=== PATIENT | male | born 1995 | race Asian ===

== ENCOUNTER 2017-09-17 10:49 | Day surgery (SDC) | payer OTHER ==
[2017-09-17] VITALS (13 sets, daily range): BP systolic 108–131; BP diastolic 41–92
[~2017-09-17] VITALS: Ht 163.8 cm; Wt 58.1 kg
[~2017-09-17 10:49] MED LIST: ceFAZolin sod 1 GM in NS 55 ML IVPB ONE
[2017-09-17] MEDS ORDERED: TESTOSTERO100 MG/1 M IM (11:20)
[2017-09-17] MEDS ORDERED: Bacitracin Oint 15gm Tube TOPIC ONE (11:37)
[2017-09-17] MEDS ORDERED: Lidocaine 1% 10mg/ml/EPI 0.01mg/ml 50ml INJ ONE (11:38)
[2017-09-17] MEDS ORDERED: Muri-Lube ONE ×2 (11:38→11:51)
[2017-09-17] MEDS ORDERED: TransDerm Scop 1mg/72HR Patch TDERMAL ONE (11:39)
[2017-09-17] MEDS ORDERED: Propofol 200mg/20ml IV ONE (11:39)
--- NOTE | 2017-09-17 11:55 | Pre-Procedure Note/Attestation ---
Pre-Procedure Note/Attestation Complete Prior to Procedure Planned Procedure: bilateral Indications for Procedure Pre-Operative Diagnosis: gender dysphoria Attestation I attest that I discussed the nature of the procedure; its benefits; risks and complications; and alternatives (and the risks and benefits of such alternatives ), prior to the procedure, with the patient (or the patient's legal guest relations representative). I attest that, if there was a reasonable possibility of needing a blood transfusion, the patient (or the patient's legal guest relations representative) was given the [facility] standardized written summary, pursuant to the José Walcott Blood Safety Act ([place] Health and Safety Code # 1645, as amended). I attest that I re-evaluated the patient just prior to the surgery and that there has been no change in the patient's H&P, except as documented below: TONNY VITALE M.D. Sep 17, 2017 11:55
[2017-09-17] MEDS ORDERED: Bupivacaine 0.25% Inj 30ml INJ ONE (11:59)
[2017-09-17] MEDS ORDERED: NS Irrig 1000ml ONE (12:00)
[2017-09-17] MEDS ORDERED: Sterile Water Irrig 1000ml IRRIG ONE (12:00)
[2017-09-17] MEDS ORDERED: fentaNYL 100 mcg/2 mL IV ONE (12:00)
[2017-09-17] MEDS ORDERED: Ketorolac 30mg Inj ONE (12:00)
[2017-09-17] MEDS ORDERED: Glycopyrrolate 0.2mg/ml 1ml Vial ONE (12:00)
[2017-09-17] MEDS ORDERED: Succinylcholine 20mg/ml 10ml vial ONE (12:00)
[2017-09-17] MEDS ORDERED: Midazolam 2mg/2ml Inj ONE (12:00)
[2017-09-17] MEDS ORDERED: Morphine Sulfate 10mg/ml Inj ONE (12:00)
[2017-09-17] MEDS ORDERED: Neostigmine 1mg/ml 10ml Inj ONE (12:00)
[2017-09-17] MEDS ORDERED: Zemuron 50mg/5ml Inj IV ONE (12:00)
[2017-09-17] MEDS ORDERED: Dexamethasone 4mg/ml vial ONE (12:00)
[2017-09-17] MEDS ORDERED: LR 1000ml ONE (12:00)
[2017-09-17] MEDS ORDERED: Dyna-Hex 2% Top Sol 2oz TOPIC ONE (12:30)
[2017-09-17] MEDS ORDERED: LR 1000ml 1,000 ML IVLG SCH (13:10)
--- NOTE | 2017-09-17 13:10 | Anethesia Preoperative Eval ---
Anesthesia Pre-op PMH/ROS General Date of Evaluation: Sep 17, 2017 Time of Evaluation: 11:50 Anesthesiologist: Elton ASA Score: ASA 2 Mallampati Score Class I : Soft palate, uvula, fauces, pillars visible Class II: Soft palate, uvula, fauces visible Class III: Soft palate, base of uvula visible Class IV: Only hard plate visible Mallampati Classification: Class II Surgeon: Jodee Diagnosis: Gender dysphoria Surgical Procedure: Bilateral mastectomy with nipple reconstruction Anesthesia History: none Family History: no anesthesia problems Allergies: Coded Allergies: No Known Allergies (Unverified , 09/17/17) Medications: see eMAR Past Medical History Cardiovascular: Denies: HTN, CAD, [place], valve dz, arrhythmia, other Pulmonary: Denies: asthma, COPD, SANGEETA, other Gastrointestinal/Genitourinary: Denies: GERD, CRI, ESRD, other Neurologic/Psychiatric: Reports: depression/anxiety, Denies: dementia, CVA, TIA, other Endocrine: Denies: DM, hypothyroidism, steroids, other HEENT: Denies: cataract (L), cataract (R), glaucoma, IGIUGIG (L), IGIUGIG (R), other Hematology/Immune: Denies: anemia, DVT, bleeding disorder, other Musculoskeletal/Integumentary: Denies: OA, RA, DJD, DDD, edema, other PMH Narrative: as above PSxH Narrative: None Anesthesia Pre-op Phys. Exam Physician Exam Last Vital Signs Date Time Temp Pulse Resp B/P (MAP) Pulse Ox O2 Delivery O2 Flow Rate FiO2 09/17/17 11:22 128/86 09/17/17 11:14 98.7 88 19 100 Room Air Constitutional: NAD Neurologic: CN 2-12 intact Cardiovascular: RRR, no M/R/G Respiratory: CTA Gastrointestinal: S/NT/ND Airway Exam Mallampati Score: Class II MO: full Neck: flexible ROM: full Teeth: intact Dentures: no upper, no lower Anesthesia Pre-op A/P Labs See chart Urine Test Test 09/17/17 11:00 Urine HCG, Qualitative Negative Risk Assessment & Plan Assessment: ASA 2 Plan: Ga with ETT PONV prevention, scopolamine patch order in Status Change Before Surgery: No Pre-Antibiotics Drug: Ancef 1 gr. Given Within 1 Hr of Incision: Yes Time Given: 12:38 EDMOND FRANCES M.D. Sep 17, 2017 13:10
[2017-09-17] MEDS ORDERED: Metoclopramide 10mg/2ml Inj IVP PRN (13:15)
[2017-09-17] MEDS ORDERED: Hydromorphone 0.5mg/0.5ml inj IVP PRN (13:15)
[2017-09-17] MEDS ORDERED: Meperidine 50mg/ml Inj(FOR RIGORS ONLY) IV PRN (13:15)
[2017-09-17] MEDS ORDERED: Midazolam 2mg/2ml Inj IVP PRN (13:15)
[2017-09-17] MEDS ORDERED: Ketorolac 30mg Inj IV PRN (13:15)
[2017-09-17] MEDS ORDERED: DiphenhydrAMINE 50mg/ml Inj IVP PRN (13:15)
--- NOTE | 2017-09-17 15:44 | Discharge Instructions ---
Discharge Instructions Discharge Instructions Follow up with: Dr. Vitale Sep 22 2pm Diet: regular Resume Normal Activity?: Yes Activity: ambulate For Surgical Patients Dressing Care: keep dry and clean May shower: No For Congestive Heart Failure Reminder Report to your physician any weight gain of 5 pounds or more in one week. TONNY VITALE M.D. Sep 17, 2017 15:44
--- NOTE | 2017-09-17 15:44 | Operative Note - PDOC ---
Operative Note Operative Note Date of Operation/Procedure: Sep 17, 2017 Pre-op Diagnosis: gender dysphoria Procedure: bilateral mastectomy, free nipple areola graft Post-op Diagnosis: same as pre-op Surgeon: Jodee Anesthesiologist: Elton Anesthesia: general Specimen: yes - right breast, left breast Complications: none Condition: stable Estimated Blood Loss: volume - 50 cc Drains: MAGDA - x2 Implant(s) used?: No Indications for Procedure gender dysphoria TONNY VITALE M.D. Sep 17, 2017 15:44
--- NOTE | 2017-09-17 16:06 | Immediate Post-Op Evaluation ---
Immediate Post-Op Evalulation Immediate Post-Op Evalulation Procedure: Bilateral mastectomy with nipple reconstruction Date of Evaluation: Sep 17, 2017 Time of Evaluation: 16:04 IV Fluids: 1200 Blood Products: none Estimated Blood Loss: 100 Urinary Output: 400 Blood Pressure Systolic: 112 Blood Pressure Diastolic: 51 Pulse Rate: 96 Respiratory Rate: 22 O2 Sat by Pulse Oximetry: 98 Temperature (Fahrenheit): 97.8 Pain Score (1-10): 2 Nausea: No Vomiting: No Complications none Patient Status: reacts, patent, extubated, none Hydration Status: adequate EDMOND FRANCES M.D. Sep 17, 2017 16:06
--- NOTE | 2017-09-17 16:47 | 48 Hour Post Anesthesia Eval ---
Post Anesthesia Evaluation Procedure: Bilateral mastectomy with nipple reconstruction Date of Evaluation: Sep 17, 2017 Time of Evaluation: 16:46 Blood Pressure Systolic: 124 0: 68 Pulse Rate: 98 Respiratory Rate: 22 Temperature (Fahrenheit): 97.8 O2 Sat by Pulse Oximetry: 98 Airway: patent Nausea: No Vomiting: No Pain Intensity: 3 Hydration Status: adequate Cardiopulmonary Status: stable Mental Status/LOC: patient returned to baseline Follow-up Care/Observations: n/a Post-Anesthesia Complications: none Follow-up care needed: ready to discharge EDMOND FRANCES M.D. Sep 17, 2017 16:47
[2017-09-17] MEDS ORDERED: Hydromorphone 0.5mg/0.5ml inj SUBQ PRN (18:01)
[2017-09-17] MEDS ORDERED: Tylenol #3 tab (300mg/30mg) ORAL PRN (18:01)
[2017-09-17] MEDS ORDERED: D5 1/2NS 1,000 ML IV SCH (18:01)
[2017-09-17] MEDS ORDERED: Norco 5mg/325mg tab ORAL PRN (18:01)
--- NOTE | 2017-09-17 23:45 | Operative Note - Dictated ---
DATE OF OPERATION: 09/17/2017 PREOPERATIVE DIAGNOSIS: Gender dysphoria. POSTOPERATIVE DIAGNOSIS: Gender dysphoria. PROCEDURES: 1. Bilateral subcutaneous mastectomy. 2. Bilateral nipple-areolar reconstruction with full-thickness nipple-areolar composite graft (each graft 6.25 cm2). 3. Bilateral reconstruction of inferior mastectomy defect. SURGEON: Scooby Ellsworth M.D. ANESTHESIA: General. ESTIMATED BLOOD LOSS: 50 mL. SPECIMENS: 1. Right breast. 2. Left breast. DRAINS: A 15-[place] Junaid x2. COMPLICATIONS: None. CONDITION TO RECOVERY ROOM: Stable. INDICATION FOR PROCEDURE: This is a very pleasant 22-year-old trans-male, who has been undergoing transition for several years. He has the appropriate letter of support from his mental health therapist and also meets WPATH criteria for top surgery. He wishes to proceed with this portion of his transition. I have discussed the risks, benefits, and alternatives with him including but not limited to bleeding, infection, scarring, nerve injury, asymmetry, contour deformity, hematoma, seroma, loss of nipple sensation, loss of nipple graft, and need for additional surgery including revisions. I discussed the orientation of the incisions and the unpredictable nature of scarring. No guarantees were made regarding the outcome. All of his questions have been answered to the best of my ability. He verbalized understanding with everything that we discussed and wishes to proceed. DESCRIPTION OF PROCEDURE: The patient was identified in the preoperative holding area and marked in the standing position. He was then brought to the operating room where he was placed in the supine position on the operating room table with his arms extended on arm boards. All bony prominences were adequately padded. Sequential compression devices were placed and intravenous antibiotics were administered. After induction of anesthesia, the patient's chest was prepped and draped in sterile fashion. Starting on the left breast first, the nipple-areolar complex was placed on manual stretch. A qagan tayagungin measuring 2.5 cm in diameter was drawn centered around the nipple. Next, a #15 blade scalpel was used to harvest a full-thickness nipple-areolar composite graft. The graft was subsequently defatted and then placed in wet gauze and put on the back table. I then made an inframammary fold incision using a #10 blade scalpel. Dissection proceeded down through the subcutaneous tissues until the level of the pectoralis major fascia was reached. Next, I then proceeded to make the superior breast incision using a #10 blade scalpel. Dissection proceeded through the subcutaneous tissues using electrocautery until Carmel fascia was reached. Skin hooks were then used to retract the skin and a plane of dissection was then created in a superior direction between the breast parenchyma and the subcutaneous tissue until approximately the level of the clavicle was reached, taking care to ensure that the skin flaps were of uniform thickness. After this was done, the breast tissue was then elevated off of the pectoralis major fascia from medial to lateral direction. The specimen was then passed off the table. Hemostasis was achieved and the wound was irrigated with saline. A #15 [place] Junaid drain was then placed within the wound and brought out through a separate stab incision and secured using 2-0 silk suture. Next, skin hooks were used to retract the inferior skin flap. Dissection proceeded in a subfascial plane heading in an inferior direction towards the abdomen taking care to ensure that all perforating intercostal vessels to the tissues were identified and preserved. After this was done, I then extended the incision laterally for approximately 6 cm in an oblique orientation towards the axilla. Next, the inferior tissues from the upper abdomen were advanced in a superior direction and then secured along the inferior and lateral border of the pectoralis major muscle with #0 Vicryl suture so as to reconstruct the inferior mastectomy defect by providing a nice contour to the lower chest and also ensure the orientation of the incision would parallel the inferior and lateral border of the muscle. After this maneuver, the superior chest skin could then be advanced inferiorly and reapproximated without any undue tension. The skin was reapproximated with skin maria teresa. I then shifted my attention to the contralateral side where the identical procedure was performed. Next, the patient was set up on the operating room table and it appeared that he had reasonable symmetry between the two sides of the chest. A marking pen was then used to outline the proposed location of the new nipple-areolar complex on each side. This was confirmed with measurements. He was then placed back in the supine position. On each side, the Carmel fascial layer was reapproximated with interrupted #0 Vicryl suture. The skin maria teresa were removed. The dermal layers were closed with interrupted 3-0 PDS suture followed by running 3-0 Monocryl for the skin. Next, the marking corresponding to the proposed location of the nipple-areolar complex was incised using a #15 blade scalpel. The intervened skin was de-epithelialized. Each of the nipple-areolar full-thickness composite grafts was then brought out onto the table, placed on the appropriate side, and inset using running 5-0 fast- absorbing suture. Next, several 2-0 silk sutures were placed around the periphery of each nipple-areolar graft. A skin graft bolster was then fashioned and secured into place over each graft and tied down using the 2-0 silk sutures. Next, a total of 20 mL of local anesthetic consisting of equal parts 1% lidocaine with epinephrine and 0.25% plain Marcaine were injected into the incisions. Sterile dressings were then applied. The patient tolerated the procedure well and was sent to the recovery room in stable condition. All instrument, sharp, and sponge counts were correct at the conclusion of the case. Scooby Ellsworth M.D. DR: Surekha JOB#: [id number] CC: UNIQUE
== END 2017-09-17 18:15 | disposition home or self-care (01) ==
LOC: SUR 10:49
DX: F64.9 Gender identity disorder, unspecified (principal); F32.9 Major depressive disorder, single episode, unspecified; F41.9 Anxiety disorder, unspecified
CPT/HCPCS: 15200; 19303; 81025; J0330; J0690; J1100; J1885; J2250; J2270; J2405; J2704; J2710; J2765; J3010; J3490; J7120; Z7512; 94003; 94150